=== PATIENT | female | born 1950 | race Caucasian/White ===

== ENCOUNTER 2023-06-05 05:50 | Day surgery (SDC) | payer MEDICARE ==
[2023-06-05] VITALS (7 sets, daily range): BP systolic 103–144; BP diastolic 57–81; PULSE 51–76; RESP 14–16; TEMP 98.3; O2SAT 9–96
[~2023-06-05] VITALS: Ht 154.9 cm; Wt 80.7 kg
[~2023-06-05 05:50] MED LIST: clindamycin-Cleocin 900mg/D5W 50 ML IV ONE; famotidine 20mg tablet PO ONE; ringers solution, lacted 1,000 ML IV SCH
[2023-06-05] MEDS ORDERED: LIDOcaine 0.5% (5mg/ml) 50ml vial ONE (07:31)
[2023-06-05] MEDS ORDERED: DAPA10TA PO (07:51)
[2023-06-05] MEDS ORDERED: LOSA25TA96 PO (07:51)
[2023-06-05] MEDS ORDERED: LOSA100T58 PO (07:51)
[2023-06-05] MEDS ORDERED: AMLO5TAB16 PO (07:51)
[2023-06-05] MEDS ORDERED: DULO60CA65 PO (07:51)
[2023-06-05] MEDS ORDERED: INSU300I3 SQ (07:51)
[2023-06-05] MEDS ORDERED: PROP120C2 PO (07:51)
[2023-06-05] MEDS ORDERED: ANAS1TAB10 PO (07:51)
[2023-06-05] MEDS ORDERED: ATOR-2 PO (07:51)
[2023-06-05] MEDS ORDERED: fentaNYL/PF 50MCG/1 ML 2ML syringe ONE (09:03)
[2023-06-05] MEDS ORDERED: midazolam 1 mg/ML 2ml injection ONE (09:04)
[2023-06-05] MEDS ORDERED: BUPIVAcaine/PF 2.5mg/ml (0.25%) 10ml vial ONE (09:35)
[2023-06-05] MEDS ORDERED: BUPIVAcaine/PF 2.5mg/ml (0.25%) 10ml vial IJ ONE (09:41)
[2023-06-05] MEDS ORDERED: diphenhydrAMINE 50 mg/ml inj ONE (09:45)
--- NOTE | 2023-06-05 09:50 | NUR ---
Received from OR via BED, accompanied by Anesthesiologist and report given by Anesthesiologist. PATIENT WAKING UP, NO S/S OF PAIN, V/S WNL, SCD ON, 20G TO RUE, LEFT WRIST DRESSING CDI W/ SLING. ICE AND ELEVATED RUE.
--- NOTE | 2023-06-05 10:30 | NUR ---
PATIENT A&OX4, DENIES PAIN, V/S WNL, SCD OFF, 20G TO RUE D/C, RIGHT WRIST DRESSING CDI W/ SLING. ICE AND ELEVATED RUE. I HAVE REVIEWED D/C INSTRUCTIONS WITH PATIENT INSTRUCTIONS WITH PATIENT AND THEY HAVE VERBALIZED UNDERSTANDING. PATIENT D/C HOME WITH ALL BELONGINGS AND FAMILY TRANSPORTED PATIENT HOME.
== END 2023-06-05 10:30 | disposition home or self-care (01) ==
LOC: PAS 05:50
PROVIDERS: ATTEND Orthopaedic Surgery Hand Surgery
DX: G56.02 Carpal tunnel syndrome, left upper limb (principal); M65.342 Trigger finger, left ring finger; J45.909 Unspecified asthma, uncomplicated; M19.90 Unspecified osteoarthritis, unspecified site; E11.9 Type 2 diabetes mellitus without complications; E66.9 Obesity, unspecified; Z68.33 Body mass index [BMI] 33.0-33.9, adult; Z87.442 Personal history of urinary calculi; Z79.4 Long term (current) use of insulin; Z85.3 Personal history of malignant neoplasm of breast; Z98.890 Other specified postprocedural states; Z88.0 Allergy status to penicillin; Z88.5 Allergy status to narcotic agent; Z88.1 Allergy status to other antibiotic agents; Z79.899 Other long term (current) drug therapy
CPT/HCPCS: 26055; 64721; 82948; A6222; J1200; J2250; J3010; J3490; J7030; J7120; Z7506; Z7512; A4215; A6449

== ENCOUNTER 2023-07-03 07:06 | Day surgery (SDC) | payer MEDICARE ==
[2023-06-01 14:42] LABS: BASOPHILS # (AUTO) 0.1 X10'3 (0-0.2); BASOPHILS % (AUTO) 1.3 % (0-1); EOSINOPHILS # (AUTO) 0.2 X10'3 (0-0.9); EOSINOPHILS % (AUTO) 2.1 % (0-6); HEMATOCRIT 44.7 % (35.0-45.0); HEMOGLOBIN 14.8 g/dl (12.0-16.0); LYMPHOCYTES # (AUTO) 1.7 X10'3 (1.1-4.8); LYMPHOCYTES % (AUTO) 22.8 % (21-51); MEAN CORPUSCULAR HEMOGLOBIN 28.2 PG (27.0-31.0); MEAN CORPUSCULAR VOLUME 85.4 FL (78-98); MEAN PLATELET VOLUME 7.2 FL (7.4-10.4); MONOCYTES # (AUTO) 0.4 X10'3 (0-0.9); MONOCYTES % (AUTO) 5.8 % (2-12); PLATELET COUNT 299 X10'3 (140-440); RED BLOOD COUNT 5.24 X10'6 (4.20-5.60); RED CELL DISTRIBUTION WIDTH 13.9 % (11.5-14.5); WHITE BLOOD COUNT 7.4 X10'3 (4.5-11.0)
[2023-06-01 14:48] LABS: ALANINE AMINOTRANSFERASE 25 U/L (12-78); ALBUMIN 3.4 G/DL (3.4-5.0); ALBUMIN/GLOBULIN RATIO 0.9 (1.1-1.5); ALKALINE PHOSPHATASE 107 IU/L (46-116); ANION GAP 11 (8-16); ASPARTATE AMINO TRANSFERASE 14 U/L (10-37); BILIRUBIN,TOTAL 0.5 MG/DL (0.1-1.0); BLOOD UREA NITROGEN 18 MG/DL (7-18); BUN/CREATININE RATIO 18.9 (10.0-20.0); CALCIUM 8.8 MG/DL (8.5-10.1); CHLORIDE 105 MMOL/L (99-107); CREATININE 0.95 MG/DL (0.40-0.90); GLUCOSE 321 MG/DL (70-104); POTASSIUM 3.5 MMOL/L (3.5-5.1); SODIUM 142 MMOL/L (135-145); TOTAL CARBON DIOXIDE 26.1 MMOL/L (24-32); eGFR 58 ML/MIN
[2023-06-28 14:21] LABS: BASOPHILS # (AUTO) 0.1 X10'3 (0-0.2); BASOPHILS % (AUTO) 1.4 % (0-1); EOSINOPHILS # (AUTO) 0.1 X10'3 (0-0.9); EOSINOPHILS % (AUTO) 1.5 % (0-6); LYMPHOCYTES # (AUTO) 1.8 X10'3 (1.1-4.8); LYMPHOCYTES % (AUTO) 25.3 % (21-51); MEAN CORPUSCULAR HEMOGLOBIN 27.9 PG (27.0-31.0); MEAN CORPUSCULAR HGB CONC 32.7 g/dL (33.0-36.5); MEAN CORPUSCULAR VOLUME 85.2 FL (78-98); MEAN PLATELET VOLUME 7.1 FL (7.4-10.4); MONOCYTES # (AUTO) 0.5 X10'3 (0-0.9); NEUTROPHILS # (AUTO) 4.6 X10'3 (1.8-7.7); NEUTROPHILS % (AUTO) 64.8 % (42-75); PRE OP HEMATOCRIT 45.8 % (35.0-45.0); PRE OP PLATELET COUNT 326 X10'3 (140-440); PRE OP WHITE BLOOD COUNT 7.1 10'3 (4.8-10.8); RED BLOOD COUNT 5.37 X10'6 (4.20-5.60); RED CELL DISTRIBUTION WIDTH 14.1 % (11.5-14.5)
[2023-06-28 14:35] LABS: ALBUMIN 3.3 G/DL (3.4-5.0); ALBUMIN/GLOBULIN RATIO 0.9 (1.1-1.5); ALKALINE PHOSPHATASE 93 IU/L (46-116); BLOOD UREA NITROGEN 14 MG/DL (7-18); BUN/CREATININE RATIO 17.7 (10.0-20.0); CALCIUM 8.7 MG/DL (8.5-10.1); CHLORIDE 107 MMOL/L (99-107); CREATININE 0.79 MG/DL (0.40-0.90); PRE OP ALT 20 U/L (30-65); PRE OP ANION GAP 10 (8-16); PRE OP AST 12 U/L (10-37); PRE OP BILIRUB, TOTAL 0.4 MG/DL (0.0-1.0); PRE OP GLUCOSE 144 MG/DL (70-104); PRE OP POTASSIUM 3.5 MMOL/L (3.4-5.1); PRE OP SODIUM 142 MMOL/L (135-145); TOTAL CARBON DIOXIDE 25.3 MMOL/L (24-32); eGFR 72 ML/MIN
[2023-07-03] VITALS (18 sets, daily range): BP systolic 95–135; BP diastolic 41–83; PULSE 43–58; RESP 9–17; TEMP 98.4; O2SAT 91–96
[~2023-07-03] VITALS: Ht 154.9 cm; Wt 58.0 kg
[~2023-07-03 07:06] MED LIST changes: +AMLO5TAB16 PO; +ANAS1TAB10 PO; +ATOR-2 PO; +BUPIVAcaine/PF 2.5mg/ml (0.25%) 10ml vial ONE; +DAPA10TA PO; +DOCUMENT DATE & TIME OF BETA-BLOCKER PO ONE; +DULA0.75 SUBCUT; +DULO60CA65 PO; +INSU100C4 SQ; +LANTUS SQ; +LOSA100T58 PO; +PROP120C2 PO
[2023-07-03] MEDS ORDERED: insulin regular, human U-100 3ml vial - multi-dose IV ONE (08:30)
[2023-07-03] MEDS ORDERED: propofol 10mg/ml 20ml vial IV ONE (08:49)
[2023-07-03] MEDS ORDERED: fentaNYL/PF 50MCG/1 ML 2ML syringe ONE (08:53)
[2023-07-03] MEDS ORDERED: midazolam 1 mg/ML 2ml injection ONE (08:54)
[2023-07-03] MEDS ORDERED: morphine 2 MG/ML inj. syringe IV PRN (09:05)
[2023-07-03] MEDS ORDERED: ondansetron/PF 4mg/2ml inj IV PRN (09:05)
[2023-07-03] MEDS ORDERED: labetalol 20mg/4ml (5mg/ml) syringe IV PRN (09:05)
[2023-07-03] MEDS ORDERED: ringers solution, lacted 1,000 ML IV SCH (09:05)
[2023-07-03] MEDS ORDERED: meperidine/PF 25mg/ml syringe IV PRN ×3 (09:05)
[2023-07-03] MEDS ORDERED: proCHLORperazine 10 MG/2 ml inj IV PRN (09:05)
[2023-07-03] MEDS ORDERED: hydrALAZINE 20mg/ml inj. IV PRN (09:05)
[2023-07-03] MEDS ORDERED: acetaminophen 1,000mg/100ml IV 100 ML IV PRN (09:05)
[2023-07-03] MEDS ORDERED: morphine 4 MG/ML inj SYRINge IV PRN (09:05)
[2023-07-03] MEDS ORDERED: BUPIVAcaine/PF 2.5 mg/ml (0.25%) 30ml vial ONE (09:06)
[2023-07-03] MEDS ORDERED: LIDOcaine 0.5% (5mg/ml) 50ml vial ONE (09:14)
--- NOTE | 2023-07-03 09:23 | NUR ---
Received from OR via [facility] TO RR 6, accompanied by Anesthesiologist DR ALDRIDGE and report given by Anesthesiolgist. PT PRESENTS WITH PIV 20G LEFT HAND, DRESSING ON RIGHT HAND CDI, LR RUNNING AT 100MLS/HR, SPO2 94% 2L NASAL CANNULA, VSS. Addendum: 07/03/23 at [id number] by Erika Sheehan RN, RN Amended: Links added.
--- NOTE | 2023-07-03 11:53 | NUR ---
I HAVE REVIEWED D/C INSTRUCTIONS WITH PATIENT AND THEY HAVE VERBALIZED UNDERSTANDING OF INSTRUCTIONS. IV D'C WITH CANULA INTACT. PT TAKEN OUT ON A WHEELCHAIR. PATIENT D/C HOME WITH ALL BELONGINGS AND FAMILY GAVE TRANSPORT Addendum: 07/03/23 at 1243 by Erika Sheehan RN, RN Amended: Links added.
== END 2023-07-03 11:53 | disposition home or self-care (01) ==
LOC: PRE-OP 07:06
PROVIDERS: ATTEND Orthopaedic Surgery Hand Surgery
DX: G56.01 Carpal tunnel syndrome, right upper limb (principal); M65.311 Trigger thumb, right thumb; M65.341 Trigger finger, right ring finger; I10 Essential (primary) hypertension; E11.9 Type 2 diabetes mellitus without complications; E66.9 Obesity, unspecified; Z68.33 Body mass index [BMI] 33.0-33.9, adult; J45.909 Unspecified asthma, uncomplicated; F32.A Depression, unspecified; M85.80 Other specified disorders of bone density and structure, unspecified site; Z85.3 Personal history of malignant neoplasm of breast; Z87.442 Personal history of urinary calculi; Z98.890 Other specified postprocedural states; Z88.1 Allergy status to other antibiotic agents; Z88.0 Allergy status to penicillin; Z88.5 Allergy status to narcotic agent; Z79.899 Other long term (current) drug therapy; Z79.4 Long term (current) use of insulin
CPT/HCPCS: 26055; 36415; 64721; 80053; 82948; 85025; 93005; J0131; J1815; J2250; J2704; J3010; J3490; J7030; J7120; Z7506; A4215